=== PATIENT | female | born 1980 | race Hispanic/Latino ===

== ENCOUNTER 2023-09-05 11:19 | Emergency (ER) | payer SELFPAY ==
[2023-09-05 11:36] VITALS: BP 126/78; PULSE 84; RESP 16; TEMP 36.7; O2SAT 98
--- NOTE | 2023-09-05 12:03 | ED.GENADULT ---
HPI - General Adult General Chief complaint: Headache Stated complaint: high blood pressure Time Seen by Provider: 09/05/23 11:39 Source: patient, family and RN notes reviewed Mode of arrival: ambulatory Limitations: no limitations History of Present Illness HPI narrative: Patient presents today from work complaining of elevated blood pressure. States she was doing a lot of walking at work today when she suddenly felt hot, sweaty, and dizzy. Her blood pressure was checked at work and it was 144/98. She was instructed to come and be evaluated at [facility] this morning. States by the time she arrived her symptoms have resolved completely. She denies any shortness of breath, chest pain, abdominal pain, or any additional symptoms. States she had a headache yesterday, but this resolved yesterday. No headache today. She does not have a history of hypertension. Related Data Home Medications Medication Instructions Recorded Confirmed No Home Medications 09/05/23 09/05/23 Allergies Allergy/AdvReac Type Severity Reaction Status Date / Time No Known Allergies Allergy Verified 09/05/23 11:40 Review of Systems Review of Systems: CONSTITUTIONAL: Denies body aches, fever, chills, or sweats. EYES: Denies visual changes, redness, or discharge. ENT: Denies rhinorrhea, congestion, sore throat, or otalgia. CARDIOVASCULAR: Denies chest pain, palpitations, or edema. RESPIRATORY: Denies cough or dyspnea. GASTROINTESTINAL: Denies abdominal pain, nausea, vomiting, or diarrhea. GENITOURINARY: Denies dysuria or hematuria. SKIN: Denies rash, itching, or wounds. MUSCULOSKELETAL: Denies back pain, joint pain, or myalgia. NEUROLOGIC: Denies headache, numbness, tingling, or weakness. PSYCH: Denies depression or anxiety. PMFSH Comments At time of signature, I have reviewed and agree with nursing past medical, surgical, social and family history unless otherwise noted. Please see nursing chart for further information. There is no relevant family history pertinent to the presenting complaint Exam Narrative: GENERAL: Well-appearing, well-nourished, and in no acute distress. HEAD: Normocephalic, atraumatic. EYES: EOMI. PERRL. No redness or drainage. Conjunctivae normal. ENT: Mucous membranes pink and moist. Nares clear. No rhinorrhea. TMs normal bilaterally. Throat normal. Uvula midline. NECK: Normal AROM. Supple. No lymphadenopathy. CHEST: No respiratory distress. Clear to auscultation. HEART: Regular rate and rhythm. No murmur appreciated. Normal peripheral pulses. ABDOMEN: Soft, nontender, nondistended, normal active bowel sounds. EXTREMITIES: Normal range of motion. No edema. Hand supervisor coil winding equal and strong. Dorsiflexion and plantar flexion equal and strong against resistance. SKIN: Warm, dry, no rash. Capillary refill normal. Normal skin turgor. NEURO: No focal deficits. Alert and oriented x3. Gait steady. PSYCH: Normal affect. No signs of depression or anxiety. Course Course Level of Care: Express Care Visit Vital Signs Vital signs: Vital Signs Temperature 98.0 F 09/05/23 11:36 Pulse Rate 84 09/05/23 11:36 Respiratory Rate 16 09/05/23 11:36 Blood Pressure 126/78 09/05/23 11:36 Pulse Oximetry 98 09/05/23 11:36 Oxygen Delivery Room Air 09/05/23 11:36 Temperature 98.0 F 09/05/23 11:36 Pulse Rate 84 09/05/23 11:36 Respiratory Rate 16 09/05/23 11:36 Blood Pressure 126/78 09/05/23 11:36 Pulse Oximetry 98 09/05/23 11:36 Oxygen Delivery Room Air 09/05/23 11:36 Reviewed Medical Decision Making MDM Narrative Medical decision making narrative: Patient's blood pressure upon arrival was 126/78. Discussed that this was within normal limits, but that she should keep an eye on her blood pressure if she had away. She does not currently have a PCP. List will be provided upon discharge. Discussed that if symptoms reappeared, worsened, she needed to go to the ER for further
== END 2023-09-05 12:13 | disposition home or self-care (01) ==
PROVIDERS: Emergency Provider Nurse Practitioner
DX: R03.0 Elevated blood-pressure reading, without diagnosis of hypertension (principal)
CPT/HCPCS: 99213; G0463

== ENCOUNTER 2024-05-20 13:58 | Emergency (ER) | payer SELFPAY ==
[2024-05-20 14:08] VITALS: BP 117/70; PULSE 55; RESP 19; TEMP 36.2; O2SAT 100
--- NOTE | 2024-05-20 14:24 | ED.URI ---
HPI - URI/Sore Throat General Stated Complaint: Fever/Sore Throat Time Seen by Provider: 05/20/24 14:15 Source: patient and family Mode of arrival: ambulatory Limitations: no limitations History of Present Illness HPI Narrative: Miranda is a 43-year-old female patient presenting to the clinic today with complaints of fever, cough, headache, body aches, nasal congestion, and sore throat x3 days. Fever has been a tactile fever. Denies any chest pain or shortness of breath. States that her son was sick approximately 2 weeks ago with similar symptoms but now he is better. Related Data Home Medications Medication Instructions Recorded Confirmed No Home Medications 09/05/23 05/20/24 Allergies Allergy/AdvReac Type Severity Reaction Status Date / Time No Known Allergies Allergy Verified 05/20/24 14:01 Review of Systems Review of Systems: Pertinent positives per HPI. Patient denies any rash, visual changes, dizziness, shortness of breath, chest pain, palpitations, nausea, vomiting, diarrhea, constipation, abdominal pain, or any urinary issues. PMFSH Comments At the time of my signature, I reviewed and agree with the nursing past medical, surgical, social, and family history. There is no relevant family history pertinent to the patient complaint. Exam Narrative: General: Well-developed, well nourished, in no apparent distress Head: Normocephalic, atraumatic Eyes: Pupils equally round and reactive to light bilaterally, EOM intact, sclera and conjunctive clear, no discharge, lids normal Ears: TMs intact and clear, ear canals clear, no drainage, grossly hearing normal. Nose: Nares patent, clear nasal discharge, no inflammation, no sinus tenderness. Mouth: Oropharynx red without lesions or masses, good dentition, MMM. Neck: Supple, trachea midline, no enlargement of anterior or posterior cervical nodes, no thyroid masses or goiter palpable. Cardio: Regular rate and rhythm, s1 and s2 normal, no murmur appreciated. Resp: Clear to auscultation bilaterally anteriorly and posteriorly, no rhonchi, rales, wheezing or rubs Course Course Emergency Course: Portions of this record may have been created with voice recognition software. Level of Care: Express Care Visit Vital Signs Vital signs: Vital Signs Temperature 36.2 C L 05/20/24 14:08 Pulse Rate 55 L 05/20/24 14:08 Respiratory Rate 19 05/20/24 14:08 Blood Pressure 117/70 05/20/24 14:08 Pulse Oximetry 100 05/20/24 14:08 Oxygen Delivery Room Air 05/20/24 14:08 Temperature 36.2 C L 05/20/24 14:08 Pulse Rate 55 L 05/20/24 14:08 Respiratory Rate 19 05/20/24 14:08 Blood Pressure 117/70 05/20/24 14:08 Pulse Oximetry 100 05/20/24 14:08 Oxygen Delivery Room Air 05/20/24 14:08 Vital signs reviewed MDM - URI/Sore Throat MDM Narrative Medical decision making narrative: At the time of visit patient is resting comfortably on the exam table. Patient appears to be nontoxic. Labs: COVID, influenza, and strep test was negative in the clinic today. We will send strep for culture. Plan: I suspect patient has URI/pharyngitis/viral syndrome. Lung sounds are clear and there is no sign of bacterial infection. Supportive measures were discussed with the patient and they voiced understanding discharge instructions and agrees to treatment plan. Return precautions reviewed Differential Diagnosis Differential diagnosis: Likely upper respiratory infection, otitis media, sinusitis, viral infection, bronchitis, influenza and pharyngitis Discharge Plan Discharge Clinical Impression: URI (upper respiratory infection), Pharyngitis, acute Patient Disposition: Home, Self-Care Condition: Stable Instructions: Antibiotic Form, Pharyngitis (ED), Upper Respiratory Infection (ED), Viral Syndrome (ED) Additional Instructions: Las pruebas de estreptococo, COVID e influenza fueron todas negativas en la cl?bill hoy. Enviaremos estreptococos para un cultivo y, si resulta positivo, nos comunicaremos con usted y le administraremos antibi?ticos en nathen momento. Puede katrin DayQuil/NyQuil para los s?ntomas del resfriado/gripe Aumente los l?quidos y mant?ngase ivan hidratado. Tylenol/motrin para el dolor/fiebre Flonase y antihistam?nicos de venta gio seg?n las indicaciones Vicks vapor frot para abrir los senos nasales Enjuagues sinusales para la congesti?n Cepacol spray, pastillas para la tos, pastillas para la garganta, t? caliente con miel/khan?n, g?rgaras con agua salada para calmar la garganta Dieta BRAT para la diarrea L?quidos jensen x 24 horas y luego avanzar seg?n la tolerancia para n?useas/v?mitos Vaya al servicio de urgencias si ramachandran afecci?n empeora: fiebre miracle que no se controla con Tylenol o Motrin, deshidrataci?n, debilidad, letargo, dificultad para respirar o dolor en el pecho. Linda un seguimiento con ramachandran PCP en 3 a 5 d?as si los s?ntomas persisten. Patient Language: Latvian Prescriptions: No Action No Home Medications Follow-up/Referrals: PHYSICIAN,FILLING SEPARATOR [Primary Care Provider] - Stand Alone Forms: Work/School Release IP Time of Disposition: 14:33 Quality NIHSS Nursing Documentation ED NIHSS nursing documentation: reviewed/agree
[2024-05-20 14:29] LABS: EDSTREPNEGPOS1 Negative (Negative)
[2024-05-20 14:33] LABS: EDCOVIDSCREEN Negative (Negative); EDINFLUASCREEN Negative (Negative); EDINFLUBSCREEN Negative (Negative)
== END 2024-05-20 14:45 | disposition home or self-care (01) ==
PROVIDERS: Emergency Provider Nurse Practitioner Family
DX: J06.9 Acute upper respiratory infection, unspecified (principal); J02.9 Acute pharyngitis, unspecified; Z20.822 Contact with and (suspected) exposure to COVID-19
CPT/HCPCS: 87081; 87426; 87804; 87880; 99213; G0463